=== PATIENT | female | born 1995 | race Caucasian/White ===

== ENCOUNTER 2016-08-17 17:04 | Emergency (ER) | payer OTHER ==
[2016-08-17 17:15] VITALS: O2SAT 100
--- NOTE | 2016-08-17 17:31 | ERPHSYRPT ---
<LILY,AGATHA - Last Filed: 08/17/16 21:08> - History of Present Illness Source: patient Exam Limitations: no limitations Patient Subjective Stated Complaint: PT STATES APPROX 10 WEEKS STATES THAT. SHE HAS BEEN SPOTTING OFF AND ON ALL WEEK STATES THAT TODAY SHE HAD A SHARP PAIN AND PASSED "DARK RED BLOOD. WITH SOME CLOTS" STATES SHE HAS BEEN HAVING SOME INTERMITTENT CRAMPING WELL. Triage Nursing Assessment: PT ALERT PINK WARM AND DRY RESP EASY NONLABORED. PT AMBULATED TO ROOM WITHOUT DIFFIUCLTY. 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 (sitting at work when vag bleeding occurred) Quality: cramping Onset Location: abdominal pain, pelvic pain Pain Radiation: none Severity of Pain-Max: moderate (5/10) Severity of Pain-Current: none Prior abdominal problems: none Sexual intercourse history: single partner Modifying Factors: Improves With: nothing Associated Symptoms: abdominal pain, No fever, No chills, No nausea, No vomiting , No dysuria Hx Tetanus, Diphtheria Vaccination/Date Given: Yes Hx Influenza Vaccination/Date Given: No Hx Pneumococcal Vaccination/Date Given: No <GLADYS ANTONIO - Last Filed: 08/18/16 07:45> - History of Present Illness Time Seen by Provider: 08/17/16 17:26 Physician History: Pt is a at about 10 weeks GA. LMP 06/09/2016 and being seen by OB, Dr. Najera. States intermittent vag bleeding for past 1week then today with heavier bleeding along with passing clots. Ptl. has intermittent lower abd pain , intermittent lasting seconds started today, sharp, localized without N?V/D, no urinary symptoms with ?vag discharge. Denies any dizziness, weakness , fever or chills. Have not taken any meds. (GLADYS ANTONIO) Allergies/Adverse Reactions: No Known Drug Allergies Allergy (Unverified 08/17/16 17:10) Home Medications: No Reportable Medications [No Reported Medications] 08/17/16 [History] - Review of Systems Constitutional: No Fever, No Chills Eyes: No Symptoms Ears, Nose, & Throat: No Symptoms Respiratory: No Cough, No Dyspnea Cardiac: No Chest Pain, No Edema, No Syncope Abdominal/Gastrointestinal: Abdominal Pain, No Nausea, No Vomiting, No Diarrhea , No Hematemesis, No Hematochezia Genitourinary Symptoms: , Vaginal Bleeding, Vaginal Discharge, No Dysuria, No Frequency, No Urgency Musculoskeletal: No Back Pain, No Neck Pain Skin: No Rash Neurological: No Dizziness, No Focal Weakness, No Sensory Changes Psychological: No Symptoms Endocrine: No Symptoms All Other Systems: Reviewed and Negative <GLADYS ANTONIO - Last Filed: 08/18/16 07:45> - Past Medical History Pertinent Past Medical History: No - Past Surgical History Past Surgical History: No - Social History Smoking Status: Light tobacco smoker How long have you smoked: 2 YEARS. Exposure to second hand smoke: Yes Drug Use: none Patient Lives Alone: No - Female History Hx Last Menstrual Period: MAY Expected Date of Delivery: 03/20/17 <GLADYS ANTONIO - Last Filed: 08/18/16 07:45> <LILYAGATHA - Last Filed: 08/17/16 21:08> - Physical Exam General Appearance: no apparent distress, alert Eye Exam: PERRL/EOMI, eyes nml inspection Ears, Nose, Throat Exam: normal ENT inspection, TMs normal, pharynx normal, moist mucous membranes Neck Exam: normal inspection, non-tender, supple, full range of motion Respiratory Exam: normal breath sounds, lungs clear, No respiratory distress Cardiovascular Exam: regular rate/rhythm, normal heart sounds, normal peripheral pulses Gastrointestinal/Abdomen Exam: soft, normal bowel sounds, No tenderness, No mass Pelvic Exam: normal external exam, vaginal bleeding, other (os closed), No adnexal tenderness, No adnexal mass, No cervical motion tenderness Back Exam: normal inspection, normal range of motion, No CVA tenderness, No vertebral tenderness Extremity Exam: normal inspection, normal range of motion, pelvis stable Neurologic Exam: alert, oriented x 3, cooperative, 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-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 nml as tested, normal mood/affect, sensation nml, No motor deficits Skin Exam: normal color, warm, dry Lymphatic Exam: No adenopathy SpO2: 100 Oxygen Delivery: Room Air <GLADYS ANTONIO - Last Filed: 08/18/16 07:45> - Nursing Vital Signs Nursing Vital Signs: Initial Vital Signs Temperature 98.8 F Temperature Source Oral Pulse Rate 70 Respiratory Rate 18 Blood Pressure [Right Arm] 117/70 Pain Intensity 0 (GLADYS ANTONIO) <RAQUEL BAUTISTAYESH - Last Filed: 08/17/16 21:08> - Progress Progress: improved Blood Culture(s) Obtained: No Antibiotics given: No Discussed with : Kassidy (Discussed about pt. Will get US to determine vivability of ) Counseled pt/family regarding: lab results, diagnosis, rad results <GLADYS ANTONIO - Last Filed: 08/18/16 07:45> - Progress Progress Note: 08/17/16 21:08 OB ultrsound reveal no heart sounds, threated miscarriage confirmed. patient notified. (AGATHA BAUTISTA) 08/17/16 19:41 Pt. remains hemodynamically stable. Will get US to determine viability (GLADYS ANTONIO) - Departure Time of Disposition: 21:11 Critical Care Time: Yes Critical Care Time(excluding separately billable procedures): 30-74 minutes <AGATHA BAUTISTA - Last Filed: 08/17/16 21:08> - Departure Time of Disposition: 19:41 Departure Disposition: Home Critical Care Time: No <GLADYS ANTONIO - Last Filed: 08/18/16 07:45> - Departure Clinical Impression: Threatened Condition: Stable Referrals: CORINNE REN [Primary Care Provider] - Instructions: Threatened Additional Instructions: follow up with Dr Corinne Ren on friday. Drink plenty of fluid. there will be some moderate amount of vaginal bleeding. take rest.
[2016-08-17 18:11] LABS: BASOPHIL % 0.2 % (0.0-0.4); Eosinophil % 1.3 % (0.00-5.0); Granulocytes % 56.4 % (36.0-66.0); Lymphocytes % 28.9 % (24.0-44.0); Mean Cell Volume 86.9 fl (78-100); Mean Platelet Volume 10.2 fl (6-9.5); Monocytes % 13.2 % (0.0-12.0); Platelet Count 215 K/mm3 (150-450); Red Blood Count 4.06 M/mm3 (4.1-5.4); Red Cell Distribution Width 14.2 % (11.5-14.0); White Blood Count 5.5 K/mm3 (4.0-10.5)
[2016-08-17 18:29] LABS: ANION GAP 16.5 MEQ/L (5-15); BLOOD UREA NITROGEN 7 mg/dL (9-20); CHLORIDE 106 mEq/L (98-107); Glucose 85 MG/DL (70-110); Potassium 3.7 mEq/L (3.5-5.1); SODIUM 143 mEq/L (136-145)
[2016-08-17 18:33] LABS: Mean Corpuscular Hemoglobin 28.5 pg (26-32)
[2016-08-17 18:36] LABS: Bacteria RARE /HPF (NEGATIVE); COMPLETE URINE MICROSCOPIC? YES; Collection Type CLEAN CATCH; Epithelial Cells FEW /HPF (FEW); Ph 6.5 (5-6); WBC 0-2 /HPF (0-5)
[2016-08-17 21:37] VITALS: BP 117/70; PULSE 70
--- NOTE | 2016-08-18 10:25 | XRAY ---
Indication: Vaginal bleeding with clots. Two-dimensional transabdominal early OB ultrasound performed. Comparison: None There is a single intrauterine gestational sac with presence of a single pole and yolk sac. Mean crown-rump length is 1.77 cm corresponding to 8 weeks 2 days. No heart tones or movement. Small subchorionic fluid collection/hemorrhage. Cervix is closed. Left and right ovaries sonographically unremarkable. No suspicious adnexal mass or free fluid. Impression: Single intrauterine measuring 8 weeks 2 days with small subchorionic fluid/hemorrhage favoring demise. Comment: Preliminary report was given.
== END 2016-08-17 21:36 | disposition home or self-care (01) ==
LOC: ED 17:04
DX: O20.0 Threatened abortion (principal)
CPT/HCPCS: 36000; 36415; 76801; 80048; 81000; 84702; 84703; 85025; 86900; 86901; 99285

== ENCOUNTER 2016-08-20 06:17 | Day surgery (SDC) | payer OTHER ==
[2016-08-20] MEDS ORDERED: Lactated Ringers 1,000 ML IV SCH (06:30)
[2016-08-20 06:48] LABS: BASOPHIL % 0.5 % (0.0-0.4); Eosinophil % 1.9 % (0.00-5.0); Granulocytes % 51.3 % (36.0-66.0); Lymphocytes % 34.9 % (24.0-44.0); Mean Cell Volume 86.3 fl (78-100); Mean Corpuscular Hemoglobin 28.5 pg (26-32); Mean Platelet Volume 10.3 fl (6-9.5); Monocytes % 11.4 % (0.0-12.0); Platelet Count 205 K/mm3 (150-450); Red Blood Count 4.32 M/mm3 (4.1-5.4); Red Cell Distribution Width 14.2 % (11.5-14.0); White Blood Count 6.2 K/mm3 (4.0-10.5)
[2016-08-20 07:13] VITALS: O2SAT 100
[2016-08-20] MEDS ORDERED: ASTRINGYN 8 GM TP ONE (07:13)
[2016-08-20] MEDS ORDERED: ARZOL Silver Nitrate Applicator TP ONE (07:13)
[2016-08-20] MEDS ORDERED: Lactated Ringers 1,000 ML IV ONE (07:13)
[2016-08-20] MEDS ORDERED: DIPRIVAN 200 MG/20 ML IV ONE (08:00)
[2016-08-20] MEDS ORDERED: Zofran 4 MG/2 ML VIAL IV ONE (08:00)
[2016-08-20] MEDS ORDERED: SUBLIMAZE 100 MCG/2 ML IV ONE (08:00)
[2016-08-20] MEDS ORDERED: Decadron 4 MG INJ IV ONE (08:00)
[2016-08-20] MEDS ORDERED: Pitocin 10 UNITS/ML IV ONE (08:00)
[2016-08-20] MEDS ORDERED: SUBLIMAZE 100 MCG/2 ML ONE (08:35)
--- NOTE | 2016-08-20 08:37 | OP ---
SURGERY DATE/TIME: 08/20/2016 0750 PREOPERATIVE DIAGNOSIS: Missed . POSTOPERATIVE DIAGNOSIS: Missed . PROCEDURE: Suction dilatation and curettage. SURGEON: Dr. Yi. ANESTHESIA: General ESTIMATED BLOOD LOSS: 50 cc. HISTORY: The patient is a 20 year old 1, para 0, white female who presents with vaginal bleeding. She had an ultrasound performed which showed embryo of approximately eight weeks in size with no heart motion. The patient was felt to have dilatation and curettage procedure. She was appraised of the risks of the procedure including risk of infection, bleeding, uterine perforation, Asherman syndrome. The patient verbalized her understanding and desired to have the procedure performed. DESCRIPTION OF PROCEDURE: The patient was prepped and draped in the dorsal lithotomy position. After general anesthesia was induced, bimanual palpation revealed the uterus to be approximately of eight weeks in size. No adnexal masses were felt. A weighted speculum was then placed. The cervix was exposed and grasped with single tooth tenaculum. The uterus was sounded to 4 inches in depth. The cervix was the progressively dilated allow entry of a #12 suction curette. Products of conception were then removed from the uterus easily passing the curette, polyp forceps then curette again. It revealed a good gritty feel in all four segments of the uterus. The single tooth tenaculum is withdrawn along with the weighted speculum. The patient was given IV Pitocin to help stem the flow bleeding. The patient was awaken and taken back to the recovery room in good condition.
[2016-08-20 10:11] VITALS: BP 127/70; PULSE 80
== END 2016-08-20 10:00 | disposition home or self-care (01) ==
LOC: SDC 06:17
PROVIDERS: ATTEND Family Medicine
PROC: 10D18ZZ Extraction of Products of Conception, Retained, Via Natural or Artificial Opening Endoscopic (ICD-10-PCS; principal; 2016-08-20)
DX: O02.1 Missed abortion (principal)
CPT/HCPCS: 01965; 36415; 84702; 85025; J1100; J2405; J2590; J2704; J3010; A9270-GY

== ENCOUNTER 2025-04-16 01:49 | Emergency (ER) | payer OTHER ==
--- NOTE | 2025-04-16 02:10 | ERPHSYRPT ---
- History of Present Illness Physician History: 29-year-old female history of D&C in 2018, presenting for concern of missed . Had an IUD placed several months ago, however started to experience dysmenorrhea and oligomenorrhea. 1 week ago she went into her gynecology office for IUD check, was ultimately found to have a borderline positive test. No ultrasound obtained. Reportedly her beta-hCG was below expected range so they trended, with repeat beta-hCG declining several days ago; thus was suspected to have a spontaneous . Today she noticed progressive worsening abdominal cramping for the last 12 hours. Has had foul-smelling vaginal discharge for the last 1 to 2 days. Subjective chills, unknown fevers. No PID or STI history to her knowledge. Currently no dysuria, frequency. No vaginal bleeding, not passing large clots. Allergies/Adverse Reactions: No Known Drug Allergies Allergy (Verified 04/16/25 02:07) Home Medications: Clonidine HCl 0.1 mg [Clonidine 0.1 mg Tablet] 0.1 mg PO HS PRN PRN 04/16/25 [History] Dextroamphetamine/Amphetamine [Adderall 10 mg Tablet] 20 mg PO DAILY 04/16/25 [History] Lisdexamfetamine Dimesylate [Vyvanse] 70 mg PO DAILY 04/16/25 [History] Hx Tetanus, Diphtheria Vaccination/Date Given: Yes Hx Influenza Vaccination/Date Given: No Hx Pneumococcal Vaccination/Date Given: No - Past Medical History Pertinent Past Medical History: Yes Neurological History: No Pertinent History ENT History: No Pertinent History Cardiac History: Other Respiratory History: No Pertinent History Endocrine Medical History: No Pertinent History Musculoskeletal History: No Pertinent History GI Medical History: No Pertinent History History: No Pertinent History Psycho-Social History: No Pertinent History Female Reproductive Disorders: No Pertinent History Other Medical History: heart murmur as a child - Past Surgical History Past Surgical History: No - Social History Smoking Status: Light tobacco smoker How long have you smoked: 2 YEARS. Exposure to second hand smoke: Yes - Nursing Vital Signs Nursing Vital Signs: Initial Vital Signs Blood Pressure 151/88 04/16/25 02:09 O2 Sat by Pulse Oximetry 100 04/16/25 02:09 Pain Scale Pain Intensity 4 - Physical Exam General Appearance: no apparent distress Respiratory Exam: normal breath sounds Cardiovascular Exam: regular rate/rhythm Gastrointestinal/Abdomen Exam: soft, tenderness, No distention, No guarding Neurologic Exam: alert, oriented x 3, cooperative SpO2 Interpretation: normal Ordered Tests: Active Orders 24 hr Category Date Time Status OB TRANSVAGINAL [US] Stat Exams 04/16/25 05:29 Ordered CBC W DIFF Stat Lab 04/16/25 03:03 Completed CMP Stat Lab 04/16/25 03:03 Completed HCG QUALITATIVE, SERUM Stat Lab 04/16/25 03:03 Completed HCG, Quantitative (Inhouse) Stat Lab 04/16/25 03:03 Completed UA W/RFX UR CULTURE Stat Lab 04/16/25 03:08 Completed Medication Summary Discontinued Medications Generic Name Dose Route Start Last Admin Trade Name Freq PRN Reason Stop Dose Admin Acetaminophen 975 mg 04/16/25 03:12 04/16/25 03:24 Acetaminophen 325 Mg Tablet PO 04/16/25 03:13 975 mg STAT ONE Administration Acetaminophen Confirm 04/16/25 03:23 Acetaminophen 325 Mg Tablet Administered 04/16/25 03:24 Dose 975 mg .ROUTE .Harir-Purple Blue Bo ONE Lab/Rad Data: Laboratory Result Diagrams 04/16/25 03:03 04/16/25 03:03 Laboratory Results 04/16/25 04/16/25 04/16/25 Range/Units 03:11 03:08 03:03 WBC (3.98-10.04) x10^3/uL RBC (3.93-5.22) x10^6/uL Hgb (11.2-15.7) g/dL Hct (34.1-44.9) % MCV (79.4-94.8) fL MCH (25.6-32.2) pg MCHC (32.2-35.5) g/dL RDW (11.7-14.4) % Plt Count (182-369) x10^3/uL MPV (9.4-12.3) fL Gran % (34.0-71.1) % Immature Gran % (Auto) (0.001-0.429) % Nucleat RBC Rel Count (0.00-0.2) % Eos # (Auto) (0.04-0.36) x10^3/uL Immature Gran # (Auto) (0.001-0.031) x10^3u/L Absolute Lymphs (auto) (1.18-3.74) x10^3/uL Absolute Monos (auto) (0.24-0.86) x10^3/uL Absolute Nucleated RBC (0.00-0.012) x10^3u/L Lymphocytes % (19.3-51.7) % Monocytes % (4.7-12.5) % Eosinophils % (0.7-5.8) % Basophils % (0.1-1.2) % Absolute Granulocytes (1.56-6.13) x10^3/uL Basophils # (0.01-0.08) x10^3/uL Sodium (135-145) mmol/L Potassium (3.5-5.1) mmol/L Chloride (98-107) mmol/L Carbon Dioxide (22-30) mmol/L Anion Gap (5-15) MEQ/L BUN (7-17) mg/dL Creatinine (0.52-1.04) mg/dL Estimated GFR ML/MIN Glucose (74-106) mg/dL Calcium (8.4-10.2) mg/dL Total Bilirubin (0.2-1.3) mg/dL AST (14-36) U/L ALT (0-35) U/L Alkaline Phosphatase (38-126) U/L Serum Total Protein (6.3-8.2) g/dL Albumin (3.5-5.0) g/dL Serum HCG, Qual POSITIVE (NEGATIVE) Beta HCG, Quant mIU/ml Urine Color Yellow (Yellow) Urine Appearance Clear (Clear) Urine pH 6.5 (4.6-8.0) Ur Specific [place] 1.020 (1.005-1.030) Urine Protein Negative (Negative) Urine Glucose (UA) Negative (Negative) mg/dL Urine Ketones Trace A (Negative) Urine Blood Negative (Negative) Urine Nitrite Negative (Negative) Urine Bilirubin Negative (Negative) Urine Urobilinogen 1.0 A (0.2) mg/dL Ur Leukocyte Esterase Negative (Negative) U Hyaline Cast (Auto) NONE SEEN (0-2) /LPF Urine Microscopic RBC 0-2 (0-5) /HPF Urine Microscopic WBC 0-2 (0-5) /HPF Ur Epithelial Cells None Seen (None Seen) /HPF Urine Bacteria None Seen (None Seen) /HPF Urine Culture Reflexed NO (NO) Chlamydia DNA Probe NOT DETECTED (NEGATIVE) N.gonorrhoeae DNA Probe NOT DETECTED (NEGATIVE) ABO Group Rh Factor Antibody Screen (NEGATIVE) 04/16/25 04/16/25 04/16/25 Range/Units 03:03 03:03 03:03 WBC 8.5 (3.98-10.04) x10^3/uL RBC 4.52 (3.93-5.22) x10^6/uL Hgb 14.4 (11.2-15.7) g/dL Hct 43.1 (34.1-44.9) % MCV 95.4 H (79.4-94.8) fL MCH 31.9 (25.6-32.2) pg MCHC 33.4 (32.2-35.5) g/dL RDW 12.9 (11.7-14.4) % Plt Count 386 H (182-369) x10^3/uL MPV 9.5 (9.4-12.3) fL Gran % 49.2 (34.0-71.1) % Immature Gran % (Auto) 0.4 (0.001-0.429) % Nucleat RBC Rel Count 0.0 (0.00-0.2) % Eos # (Auto) 0.09 (0.04-0.36) x10^3/uL Immature Gran # (Auto) 0.03 (0.001-0.031) x10^3u/L Absolute Lymphs (auto) 3.22 (1.18-3.74) x10^3/uL Absolute Monos (auto) 0.91 H (0.24-0.86) x10^3/uL Absolute Nucleated RBC 0.00 (0.00-0.012) x10^3u/L Lymphocytes % 37.8 (19.3-51.7) % Monocytes % 10.7 (4.7-12.5) % Eosinophils % 1.1 (0.7-5.8) % Basophils % 0.8 (0.1-1.2) % Absolute Granulocytes 4.19 (1.56-6.13) x10^3/uL Basophils # 0.07 (0.01-0.08) x10^3/uL Sodium 139 (135-145) mmol/L Potassium 3.5 (3.5-5.1) mmol/L Chloride 101 (98-107) mmol/L Carbon Dioxide 25 (22-30) mmol/L Anion Gap 15.6 H (5-15) MEQ/L BUN 13 (7-17) mg/dL Creatinine 0.84 (0.52-1.04) mg/dL Estimated GFR 97.0 ML/MIN Glucose 101 (74-106) mg/dL Calcium 9.9 (8.4-10.2) mg/dL Total Bilirubin 0.70 (0.2-1.3) mg/dL AST 26 (14-36) U/L ALT 20 (0-35) U/L Alkaline Phosphatase 66 (38-126) U/L Serum Total Protein 8.1 (6.3-8.2) g/dL Albumin 5.0 (3.5-5.0) g/dL Serum HCG, Qual (NEGATIVE) Beta HCG, Quant 43.99 mIU/ml Urine Color (Yellow) Urine Appearance (Clear) Urine pH (4.6-8.0) Ur Specific [place] (1.005-1.030) Urine Protein (Negative) Urine Glucose (UA) (Negative) mg/dL Urine Ketones (Negative) Urine Blood (Negative) Urine Nitrite (Negative) Urine Bilirubin (Negative) Urine Urobilinogen (0.2) mg/dL Ur Leukocyte Esterase (Negative) U Hyaline Cast (Auto) (0-2) /LPF Urine Microscopic RBC (0-5) /HPF Urine Microscopic WBC (0-5) /HPF Ur Epithelial Cells (None Seen) /HPF Urine Bacteria (None Seen) /HPF Urine Culture Reflexed (NO) Chlamydia DNA Probe (NEGATIVE) N.gonorrhoeae DNA Probe (NEGATIVE) ABO Group A Rh Factor POSITIVE Antibody Screen NEGATIVE (NEGATIVE) - Progress Progress Note: 04/16/25 04:08 29-year-old female history of D&C in 2018, presenting for concern of missed . Unknown beta-hCG from prior clinic testing, and no prior ultrasound images. On bedside ultrasound hyperechoic structure visualized in uterus, suspect IUD; otherwise no discernible fluid pockets or collections within uterus. Given unclear prior workup, missed , threatened and ectopic considered. Currently hemodynamically stable, generally well- appearing, minimal pain. Also consider IUD dislodgment, less likely uterine perforation. If missed , also consider retained products of conception, possible endometritis. No history of STIs in the past, well-appearing, nonseptic. Lower concern for PID. Plan for labs, lactate, UA, GC chlamydia testing, type and screen. Will likely require formal transvaginal pelvic ultrasound. Given the nature of presenting symptoms and possibility of emergent diagnosis, admission considered. Labs and imaging reviewed and interpreted by me. Social determinants of health were reviewed. On reevaluation, pain continues to be minimal. Reassuring blood pressures. hemoglobin is normal. No evidence of hemorrhagic shock. Patient is Rh+, no RhoGAM indicated. Initial beta-hCG 40s, unknown prior. 04/16/25 05:54 Negative UA not consistent with UTI. Denies vaginal bleeding or discharge while in the ED. Chlamydia and gonorrhea testing negative. Patient was able to pull up prior records, last week her beta-hCG was 39, then 32; however today beta-hCG is 43. Given new rise, proceeding with stat transvaginal ultrasound to rule out ectopic. 04/16/25 07:21 Transvaginal ultrasound showing no evidence of intrauterine , no evidence of ectopic, no pelvic free fluid. IUD is in place appropriately. Patient continues to be well-appearing, hemodynamically stable. Pain resolved. Patient updated on findings. Given minimally elevated beta-hCG, recommended close follow-up with her gynecology team for further evaluation, and testing per gynecology. Return precautions discussed. Discharge to home. - Departure Departure Disposition: Home Clinical Impression: Abdominal cramping, Elevated serum hCG in female, not Condition: Stable Critical Care Time: No Additional Instructions: Thank you for coming to the Emergency Department today. You were evaluated for a possible or a miscarriage; however your ultrasound showed that there is no inside the uterus. Because you have an elevated beta-hCG, it is recommended that you still follow-up with your gynecology team in the next 2 to 3 days. If your symptoms get worse or you have new concerns, please seek medical attention again. Please follow up with your primary care doctor within 3 days. Please return to the Emergency Department if you experience: -Chest pain, shortness of breath or difficulty breathing, or fainting -Worsening fevers or chills -Worsening abdominal pain, persistent vomiting, new blood in your stool, inability to keep liquids down, or severe dehydration -Severe pain or progressively worsening pain that hinders your ability to perform daily activities -New vaginal bleeding -New severe or concerning symptoms
[2025-04-16 02:18] VITALS: TEMP 97.6
[2025-04-16 03:07] LABS: BASOPHIL % 0.8 % (0.1-1.2); Basophil (Absolute #) 0.07 x10^3/uL (0.01-0.08); Eosinophil (Absolute #) 0.09 x10^3/uL (0.04-0.36); Hematocrit 43.1 % (34.1-44.9); Hemoglobin 14.4 g/dL (11.2-15.7); IMMATURE GRAN # 0.03 x10^3u/L (0.001-0.031); IMMATURE GRAN % 0.4 % (0.001-0.429); Lymphocyte (Absolute #) 3.22 x10^3/uL (1.18-3.74); Mean Corpuscular Hemoglobin 31.9 pg (25.6-32.2); Mean Corpuscular Hgb Concent. 33.4 g/dL (32.2-35.5); Monocyte (Absolute #) 0.91 x10^3/uL (0.24-0.86); NUCLEATED RBC # 0.00 x10^3u/L (0.00-0.012); NUCLEATED RBC % 0.0 % (0.00-0.2); Platelet Count 386 x10^3/uL (182-369); Red Blood Count 4.52 x10^6/uL (3.93-5.22); White Blood Count 8.5 x10^3/uL (3.98-10.04)
[2025-04-16 03:12] LABS: HCG SERUM TEST POSITIVE (NEGATIVE)
[2025-04-16 03:21] LABS: Glucose, Urine Negative (Negative); Protein,Urine Dip Negative (Negative); RBC 0-2 /HPF (0-5); WBC 0-2 /HPF (0-5)
[2025-04-16] MEDS ORDERED: TYLENOL 325 MG ONE (03:23)
[2025-04-16] MEDS: TYLENOL 325 MG PO ONE (03:24)
[2025-04-16 03:30] LABS: Calcium 9.9 mg/dL (8.4-10.2); Carbon Dioxide 25.0 mmol/L (22-30); Creatinine 1 0.84 mg/dL (0.52-1.04); EST GLOMERULAR FILTRATION RATE 97.0 ML/MIN; Glucose 101.0 mg/dL (74-106); Potassium 3.5 mmol/L (3.5-5.1); SGOT/AST 26.0 U/L (14-36); SGPT/ALT 20.0 U/L (0-35); Total Protein 8.1 g/dL (6.3-8.2)
[2025-04-16 03:56] LABS: ABO TYPING A; RH TYPING POSITIVE
[2025-04-16 04:44] LABS: CHLAMYDIA DNA NOT DETECTED (NEGATIVE)
[2025-04-16 07:40] VITALS: BP 115/81; PULSE 97; RESP 16; O2SAT 100
--- NOTE | 2025-04-16 08:28 | XRAY ---
Indication: Abdominal cramping. Increasing hCG. Two-dimensional transvaginal early OB ultrasound performed. Comparison: None Uterus anteverted measuring 6.7 x 3.2 x 4.4 cm. There is IUD in Situ with tip level of the fundus. No focal solid/cystic uterine mass. Left and right ovary sonographically unremarkable. No suspicous adnexal mass or free fluid. No intrauterine/ectopic . Impression: Uterine IUD in Situ. Negative for intrauterine/ectopic . Comment: Preliminary report was given.
== END 2025-04-16 07:30 | disposition home or self-care (01) ==
LOC: ED 01:49
DX: R10.9 Unspecified abdominal pain (principal); R79.89 Other specified abnormal findings of blood chemistry; Z79.899 Other long term (current) drug therapy; Z72.0 Tobacco use